=== PATIENT | female | born 1980 ===

== ENCOUNTER 2016-11-09 12:18 | Emergency (ER) | payer MEDICAID ==
[2016-11-09 12:43] VITALS: RESP 18; O2SAT 98
--- NOTE | 2016-11-09 13:10 | C.PDOC ---
History Of Present Illness 36F c/o right lower back pain rad to right buttock and down the back of her leg to her calf that started yesterday after she got up from a bending position and felt a sudden sharp pain in her right lower back. she has tried motrin without relief. pain worse w movement. no urinary incontinence or difficulty, saddle anesthesia, weakness, or numbness. Time Seen by Provider: 11/09/16 12:40 Chief Complaint (Nursing): Back Pain Past Medical History Vital Signs: Last Vital Signs Temp 98.8 F 11/09/16 12:43 Pulse 99 H 11/09/16 12:43 Resp 18 11/09/16 12:43 BP 130/89 11/09/16 12:43 Pulse Ox 98 11/09/16 13:17 Family History: States: Other Other Family History: nc Review Of Systems Constitutional: Negative for: Fever Cardiovascular: Negative for: Chest Pain Respiratory: Negative for: Shortness of Breath Gastrointestinal: Negative for: Vomiting, Abdominal Pain Genitourinary: Negative for: Incontinence Neurological: Negative for: Weakness, Numbness Physical Exam - Physical Exam Appears: Well, Non-toxic, No Acute Distress Back: Paraspinal Tenderness (right lumbar), Straight Leg Raising (+ right) Extremity: Normal ROM, No Deformity, No Swelling Neurological/Psych: Oriented x3, Normal Motor, Normal Sensation, Normal Reflexes (symmetric), Other (nl strength in rebecca hip/knee/ankle flex/ext and EHL) ED Course And Treatment O2 Sat by Pulse Oximetry: 98 Disposition - Disposition Referrals: [facility] [Outside] Disposition: HOME/ ROUTINE Disposition Time: 13:20 Condition: STABLE Additional Instructions: Please follow up with your primary doctor. Return to the ER for any worsening symptoms, problems with urination, numbness, weakness, fever or for any other concerns. Prescriptions: Cyclobenzaprine [Cyclobenzaprine HCl] 10 mg PO TID PRN #20 tab PRN Reason: Pain, Severe (8-10) Lidocaine 5% [Lidoderm] 1 ea TD DAILY PRN #10 patch PRN Reason: back pain Naproxen [Naprosyn] 500 mg PO Q12H PRN #10 tablet PRN Reason: Pain, Moderate (4-7) Instructions: Sciatica (ED), Acute Low Back Pain (ED), Back Exercises (ED) Forms: General Discharge Instructions - Clinical Impression Clinical Impression: Low back strain, Sciatica
[2016-11-09 13:44] VITALS: BP 124/85; PULSE 92; TEMP 98.3
== END 2016-11-09 13:53 | disposition home or self-care (01) ==
LOC: C.ER 12:18
DX: S39.012A Strain of muscle, fascia and tendon of lower back, initial encounter (principal); X50.1XXA Overexertion from prolonged static or awkward postures, initial encounter; M54.30 Sciatica, unspecified side
CPT/HCPCS: 96372; 99283; J1885